=== PATIENT | male | born 1990 | race Caucasian/White ===

== ENCOUNTER 2023-09-18 07:54 | Emergency (ER) | payer OTHER ==
[2023-09-18 08:21] VITALS: BP 140/75; PULSE 120; RESP 18; TEMP 99.4; BMI 60.8
[2023-09-18] MEDS ORDERED: ACETAMINOPHEN 325 MG TABLET (FP) ONE (08:52)
[2023-09-18] MEDS ORDERED: DEXAMETHASONE SOD PHOSPHATE 10 MG/1 ML VIAL ONE (08:52)
[2023-09-18] MEDS: ACETAMINOPHEN 325 MG TABLET (FP) PO ONE (08:55)
[2023-09-18] MEDS: DEXAMETHASONE SOD PHOSPHATE 10 MG/1 ML VIAL IVPUSH ONE (08:55)
== END 2023-09-18 09:23 | disposition home or self-care (01) ==
LOC: FER 07:54
PROC: 3E033GC Introduction of Other Therapeutic Substance into Peripheral Vein, Percutaneous Approach (ICD-10-PCS; principal; 2023-09-18)
DX: R05.9 Cough, unspecified (principal); R09.81 Nasal congestion; B34.9 Viral infection, unspecified; Z20.822 Contact with and (suspected) exposure to COVID-19
CPT/HCPCS: 0241U-QW; 71046-TC-FY; 99284-25; J1100